=== PATIENT | female | born 1980 | race Asian ===

== ENCOUNTER 2020-12-05 06:26 | Outpatient (CLI) | payer OTHER ==
[2020-12-06 11:06] LABS: ESTRADIOL <5.0 pg/mL (.); FOLLICLE STIMULATION HORMONE 26.6 mIU/mL (.); LUETENIZING HORMONE 6.9 mIU/mL (.)
== END 2020-12-05 20:51 | disposition home or self-care (01) ==
LOC: SLB 06:26
PROVIDERS: ATTEND Specialist
DX: N92.6 Irregular menstruation, unspecified (principal)
CPT/HCPCS: 36415; 82670; 83001; 83002

== ENCOUNTER 2020-12-10 08:46 | Outpatient (CLI) | payer OTHER ==
[2020-12-10 10:24] LABS: CHOLESTEROL 241 mg/dL (<200); HDL CHOLESTEROL 110 mg/dL (>55); LDL CHOLESTEROL 131 mg/dL (<100); TRIGLYCERIDES 42 mg/dL (30-150)
[2020-12-10 10:40] LABS: THYROID STIMULATING HORMONE 7.79 uIu/mL (0.36-3.74)
[2020-12-12 00:06] LABS: ESTRADIOL 10.1 pg/mL (.); FOLLICLE STIMULATION HORMONE 47.6 mIU/mL (.); LUETENIZING HORMONE 16.9 mIU/mL (.)
== END 2020-12-10 14:00 | disposition home or self-care (01) ==
LOC: SRD 08:46
PROVIDERS: ATTEND Specialist
DX: N92.6 Irregular menstruation, unspecified (principal); E55.9 Vitamin D deficiency, unspecified; E78.5 Hyperlipidemia, unspecified
CPT/HCPCS: 36415; 58340; 74740; 80061; 82627; 82670; 83001; 83002; 83525; 84145; 84403; 84443; C1751; Q9967

== ENCOUNTER 2021-01-29 07:32 | Outpatient (CLI) | payer OTHER | END 2021-01-29 20:51 | disposition home or self-care (01) | LOC: SLB 07:32 | PROVIDERS: ATTEND Specialist | DX: E03.9 Hypothyroidism, unspecified (principal) | CPT/HCPCS: 36415; 82306; 84443 ==